=== PATIENT | female | born 1990 | race Caucasian/White ===

== ENCOUNTER 2020-04-26 15:20 | Emergency (ER) | payer OTHER ==
[2020-04-26 16:27] LABS: Absolute Lymphocytes (CBC) 2.7 K/uL (0.7-4.9); Basophils % 0.3 % (0-1.3); Hematocrit 39.6 % (36.0-45.0); MPV 8.7 fL (7.6-11.3); RBC Red Blood Cell Count 4.18 M/uL (3.86-4.86)
[2020-04-26 16:29] LABS: Protime INR 0.99
[2020-04-26 16:56] LABS: ALT/SGPT 45 U/L (12-78); AST/SGOT 28 U/L (15-37); Albumin 3.6 g/dL (3.4-5.0); Alkaline Phosphatase 76 U/L (45-117); BUN Blood Urea Nitrogen 8 mg/dL (7-18); Bicarbonate 28 mmol/L (21-32); Bilirubin Direct < 0.1 mg/dL (0-0.2); Bilirubin Total 0.2 mg/dL (0.2-1.0); Glucose Level 84 mg/dL (74-106); Magnesium 1.8 mg/dL (1.8-2.4); NT PRO-BNP 47 pg/mL (<125); Potassium 3.6 mmol/L (3.5-5.1); Protein, Total 7.1 g/dL (6.4-8.2); Sodium Level 139 mmol/L (136-145); Troponin (Emerg Dept Use Only) < 0.02 ng/mL (0.0-0.045)
[2020-04-26 17:19] LABS: Urine Blood NEGATIVE (NEG); Urine Glucose NEGATIVE (NEG); Urine Protein NEGATIVE (NEG); Urine Specific Gravity 1.015 (1.005-1.030)
--- NOTE | 2020-04-26 17:50 | RAD REPORT ---
EXAM DESCRIPTION: Shefali Single View04/26/2020 5:08 pm CLINICAL HISTORY: sob COMPARISON: none FINDINGS: The lungs appear clear of acute infiltrate. The heart is normal size IMPRESSION: No acute abnormalities displayed
--- NOTE | 2020-04-26 17:50 | RAD REPORT ---
EXAM DESCRIPTION: CT - Chest For Pe Angio - 04/26/2020 5:37 pm CLINICAL HISTORY: sob COMPARISON: None. TECHNIQUE: Dynamically enhanced axial 3 mm thick images of the chest were obtained during administra tion of <100> mL Isovue 370 IV contrast. Coronal and oblique reconstruction images were generated and reviewed. Exam utilizes a protocol for optimal evaluation of pulmonary arterial tree. Maximum intensity projections 3D imaging was utilized All CT scans are performed using dose optimization technique as appropriate and may include automated exposure control or mA/KV adjustment according to patient size. FINDINGS: A pulmonary embolus is not seen. A thoracic aortic aneurysm is not noted. A pleural effusion is not seen. A pericardial effusion is not seen. A lung consolidation is not present. Fatty liver IMPRESSION: Negative for a pulmonary embolism.
--- NOTE | 2020-04-26 18:18 | ER ---
Nurse's Notes [facility] Name: Lissette Darden Age: 29 yrs Sex: Female : 1990 Arrival Date: 04/26/2020 Time: 15:23 Bed 13 Private MD: Diagnosis: Edema, unspecified Presentation: 04/26 15:35 Chief complaint: Patient states: justice ankle swelling x 1 month, prescribed fluid pill sv for 5 days. c/o BLE swelling and numbness and tingling, bilateral hand swelling, shaking, migraines, cough, SOB for the past week. Coronavirus screen: Surgical mask placed on patient. Patient moved to private room, placed in contact and droplet isolation with eye protection until further assessment. Patient reports a cough. Patient reports shortness of breath or difficulty breathing. Patient denies measured and/or subjective temperature greater than 100.4F prior to today's visit. Patient denies travel on a cruise ship or to a country the [facility] currently lists as an affected area. Patient denies contact with known and/or suspected case of COVID-19. Ebola Screen: No symptoms or risks identified at this time. Risk Assessment: Do you want to hurt yourself or someone else? Patient reports no desire to harm self or others. Onset of symptoms was March 2020. 15:35 Method Of Arrival: Ambulatory sv 15:35 Acuity: JOSE 3 sv 15:37 Initial Sepsis Screen: Does the patient meet any 2 criteria? No. Patient's initial sv sepsis screen is negative. Does the patient have a suspected source of infection? No. Patient's initial sepsis screen is negative. Triage Assessment: 15:40 General: Appears in no apparent distress. comfortable, Behavior is calm, cooperative, sv appropriate for age. Neuro: Level of Consciousness is awake, alert, obeys commands, Oriented to person, place, time, situation, Gait is steady. Respiratory: Respiratory effort is even, unlabored. Historical: - Allergies: 15:37 No Known Allergies; sv - PMHx: 15:37 Depression; PTSD; Bipolar disorder; Anxiety; sv - Immunization history:: Adult Immunizations. - Social history:: Smoking status: Patient reports the use of cigarette tobacco products, smokes one-half pack cigarettes per day. Screenin:45 Abuse screen: Denies threats or abuse. Denies injuries from another. Nutritional bp screening: No deficits noted. Tuberculosis screening: No symptoms or risk factors identified. Fall Risk None identified. Assessment: 15:45 General: SEE TRIAGE NOTE. bp 17:08 Reassessment: DDIMER ELEVATED. CT PE AND U/S PENDING. bp 18:00 Reassessment: PT RETURNED FROM RADIOLOGY. D/C ON HOLD PENDING U/S REPORT. bp 18:57 Reassessment: PT D/C HOME AMBULATORY, DX WITH PERIPHERAL EDEMA. bp Vital Signs: 15:37 BP 119 / 66; Pulse 86; Resp 18; Temp 98.8; Pulse Ox 98% ; Weight 73.03 kg; Height 5 ft. sv 0 in. (152.40 cm); 17:00 BP 117 / 83; Pulse 79; Resp 16; Pulse Ox 97% ; bp 18:21 BP 130 / 101; Pulse 89; Resp 16; Pulse Ox 98% ; bp 15:37 Body Mass Index 31.44 (73.03 kg, 152.40 cm) sv ED Course: 15:23 Patient arrived in ED. ag5 15:34 Arm band placed on. sv 15:36 Triage completed. sv 15:42 Sergio Rodriguez PA is PHCP. jmm 15:42 Kp Wiley MD is Attending Physician. jmm 15:45 Patient has correct armband on for positive identification. Bed in low position. Call bp light in reach. Side rails up X2. 15:48 Darinel Richardson, RN is Primary Nurse. bp 16:10 Inserted saline lock: 22 gauge in right forearm, using aseptic technique. Blood bp collected. 16:52 XRAY Chest (1 view) In Process Unspecified. EDMS 17:38 CT Chest For PE Angio In Process Unspecified. EDMS 18:15 US Extremity Venous W Compression Justice In Process Unspecified. EDMS 18:57 No provider procedures requiring assistance completed. IV discontinued, intact, bp bleeding controlled, No redness/swelling at site. Pressure dressing applied. Administered Medications: 18:27 Drug: Ibuprofen 600 mg Route: PO; bp 18:27 Follow up: Response: Medication administered at discharge. bp Outcome: 18:18 Discharge ordered by . jmm 18:57 Discharged to home ambulatory. bp 18:57 Condition: stable 18:57 Discharge instructions given to patient, Instructed on discharge instructions, follow up and referral plans. Demonstrated understanding of instructions, follow-up care. 18:58 Patient left the ED. bp Signatures: Dispatcher [employer] Cinthya Lizama RN RN Sergio Mckenzie PA PA jmm Peltier, Brian, RN RN Amanda Mccormack ag5 Corrections: (The following items were deleted from the chart) 15:41 15:35 Chief complaint: Patient states: justice ankle swelling x 1 month, prescribed fluid sv pill. c/o BLE swelling and numbness and tingling, bilateral hand swelling, shaking, migraines, cough, SOB. sv
--- NOTE | 2020-04-26 18:19 | EDPHYS ---
Physician Documentation [facility] Name: Lissette Darden Age: 29 yrs Sex: Female : 1990 Arrival Date: 04/26/2020 Time: 15:23 Bed 13 Private MD: ED Physician Kp Wiley HPI: 04/26 15:58 This 29 yrs old Female presents to ER via Ambulatory with complaints of Feet jmm Swelling, Leg Swelling, Ankle Swelling. 15:58 The patient presents with swelling. The complaints affect the left ankle, right ankle. jmm Onset: The symptoms/episode began/occurred gradually, 1 month(s) ago. Associated signs and symptoms: Pertinent positives: SOB. Modifying factors: The symptoms are alleviated by nothing, the symptoms are aggravated by nothing. This is a 29 year old female with a history of PTSD, bipolar disorder, anxiety, that presents to the ED with complaints of bilaterally ankle swelling beginning approx 1 month ago. Was prescribed diuretic 2 weeks ago with minimal improvement. Patient now complains of shortness of breath and pain to her lower legs bilaterally. . Historical: - Allergies: 15:37 No Known Allergies; sv - PMHx: 15:37 Depression; PTSD; Bipolar disorder; Anxiety; sv - Immunization history:: Adult Immunizations. - Social history:: Smoking status: Patient reports the use of cigarette tobacco products, smokes one-half pack cigarettes per day. ROS: 15:58 Constitutional: Negative for fever, chills, and weight loss, Cardiovascular: Negative jmm for chest pain, palpitations, and edema. 15:58 Respiratory: Positive for shortness of breath. 15:58 MS/extremity: Positive for swelling, tingling. 15:58 All other systems are negative. Exam: 15:58 Constitutional: This is a well developed, well nourished patient who is awake, alert, jmm and in no acute distress. Head/Face: atraumatic. Eyes: EOMI, no conjunctival erythema appreciated ENT: Moist Mucus Membranes Neck: Trachea midline, Supple Chest/axilla: Normal chest wall appearance and motion. Cardiovascular: Regular rate and rhythm. No edema appreciated Respiratory: Normal respirations, no respiratory distress appreciated Abdomen/GI: Non distended, soft Back: Normal ROM Skin: General appearance color normal 15:58 Musculoskeletal/extremity: mild edema noted ot the extremities bilaterally. . 15:58 Skin: Appearance: Color: normal in color. 15:58 Neuro: Orientation: is normal, Mentation: is normal, Memory: is normal. 15:58 Psych: Behavior/mood is pleasant, cooperative. 18:18 ECG was reviewed by the Attending Physician. [facility] Vital Signs: 15:37 BP 119 / 66; Pulse 86; Resp 18; Temp 98.8; Pulse Ox 98% ; Weight 73.03 kg; Height 5 ft. sv 0 in. (152.40 cm); 17:00 BP 117 / 83; Pulse 79; Resp 16; Pulse Ox 97% ; bp 18:21 BP 130 / 101; Pulse 89; Resp 16; Pulse Ox 98% ; bp 15:37 Body Mass Index 31.44 (73.03 kg, 152.40 cm) sv MDM: 15:53 Patient medically screened. [facility] 18:17 Data reviewed: vital signs, nurses notes. Counseling: I had a detailed discussion with [facility] the patient and/or guardian regarding: the historical points, exam findings, and any diagnostic results supporting the discharge/admit diagnosis, lab results, radiology results, the need for outpatient follow up, to return to the emergency department if symptoms worsen or persist or if there are any questions or concerns that arise at home. ED course: Patient is alert and non toxic in appearance in the ED. Patient is advised to follow up with pcp and otherwise given strict return precautions. Patient understood and agrees with the plan of care. . 04/26 15:55 Order name: Basic Metabolic Panel; Complete Time: 17:02 [facility] 04/26 15:55 Order name: CBC with Diff; Complete Time: 16:39 [facility] 04/26 15:55 Order name: LFT's; Complete Time: 17:02 [facility] 04/26 15:55 Order name: Magnesium; Complete Time: 17:02 [facility] 04/26 15:55 Order name: NT PRO-BNP; Complete Time: 17:02 [facility] 04/26 15:55 Order name: PT-INR; Complete Time: 16:39 [facility] 04/26 15:55 Order name: Troponin (emerg Dept Use Only); Complete Time: 17:02 [facility] 04/26 15:55 Order name: XRAY Chest (1 view); Complete Time: 18:01 [facility] 04/26 15:55 Order name: D-Dimer; Complete Time: 16:39 [facility] 04/26 16:44 Order name: US Extremity Venous W Compression Arcenio; Complete Time: 18:32 [facility] 04/26 16:44 Order name: CT Chest For PE Angio; Complete Time: 18:01 [facility] 04/26 17:08 Order name: Urine Dipstick--Ancillary (enter results); Complete Time: 17:32 04/26 17:08 Order name: Urine --Ancillary (enter results); Complete Time: 17:32 04/26 15:55 Order name: EKG; Complete Time: 15:57 [facility] 04/26 15:55 Order name: Cardiac monitoring; Complete Time: 16:14 [facility] 04/26 15:55 Order name: EKG - Nurse/Tech; Complete Time: 16:16 [facility] 04/26 15:55 Order name: IV Saline Lock; Complete Time: 16:14 [facility] 04/26 15:55 Order name: Labs collected and sent; Complete Time: 16:14 [facility] 04/26 15:55 Order name: O2 Per Protocol; Complete Time: 15:57 [facility] 04/26 15:55 Order name: O2 Sat Monitoring; Complete Time: 15:57 [facility] 04/26 16:44 Order name: Urine Test (obtain specimen); Complete Time: 17:08 jmm EC:18 Rate is 78 beats/min. Rhythm is regular. QRS [place] is Normal. ME interval is normal. QRS jmm interval is normal. QT interval is normal. No Q waves. T waves are Flattened in lead aVF. No ST changes noted. Reviewed by me. Administered Medications: 18:27 Drug: Ibuprofen 600 mg Route: PO; bp 18:27 Follow up: Response: Medication administered at discharge. bp Disposition: 04/26/20 18:18 Discharged to Home. Impression: Edema, unspecified. - Condition is Stable. - Discharge Instructions: Peripheral Edema. - Medication Reconciliation Form, Thank You Letter, Antibiotic Education, Prescription Opioid Use form. - Follow up: Private Physician; When: 2 - 3 days; Reason: Recheck today's complaints, Continuance of care, Re-evaluation by your physician. Addendum: 04/29/2020 16:33 Co-signature as Attending Physician, Kp Wiley MD I agree with the assessment and k dr plan of care. Signatures: Dispatcher [employer] Cinthya Lizama, RN RN Kp Wiley MD MD kdr Mickail, Joel, PA PA jmm Peltier, Brian, RN RN bp Corrections: (The following items were deleted from the chart) 04/26 18:58 18:18 04/26/2020 18:18 Discharged to Home. Impression: Edema, unspecified. Condition is bp Stable. Forms are Medication Reconciliation Form, Thank You Letter, Antibiotic Education, Prescription Opioid Use. Follow up: Private Physician; When: 2 - 3 days; Reason: Recheck today's complaints, Continuance of care, Re-evaluation by your physician. cabrera
--- NOTE | 2020-04-26 18:30 | RAD REPORT ---
EXAM DESCRIPTION: USExtrem Venous W Compress Bil04/26/2020 6:15 pm CLINICAL HISTORY: Bilateral leg swelling COMPARISON: none FINDINGS: The common femoral, superficial femoral, popliteal and posterior tibial veins bilaterally are compressible and demonstrate augmentation. Doppler demonstrates good flow. IMPRESSION: No evidence of deep venous thrombosis involving either lower extremity.
[2020-04-26] MEDS ORDERED: IBUPROFEN 200 MG TAB PO ONE (18:33)
[2020-04-26 19:15] VITALS: TEMP 98.8
[2020-04-26 19:18] VITALS: BP 130/101; O2SAT 98
== END 2020-04-26 18:58 | disposition home or self-care (01) ==
LOC: ER 15:20
DX: R60.9 Edema, unspecified (principal); F17.210 Nicotine dependence, cigarettes, uncomplicated
CPT/HCPCS: 93005; 85025; 80048; 36415; 83735; 81025; 85610; 85379; 80076; 81003; 84484; 83880; 71275; 71045; 93970; 99284; Q9967

== ENCOUNTER 2020-05-09 09:04 | Emergency (ER) | payer OTHER ==
[2020-05-09 09:43] LABS: Urine Blood NEGATIVE (NEG); Urine Glucose NEGATIVE (NEG); Urine Protein NEGATIVE (NEG); Urine Specific Gravity 1.025 (1.005-1.030); Urine pH 5.5 (5.0-7.0)
[2020-05-09] MEDS ORDERED: dexAMETHasone 10 MG/ML VIAL ONE (09:47)
[2020-05-09] MEDS ORDERED: KETOROLAC 30 MG/ML INJ ONE (09:47)
--- NOTE | 2020-05-09 09:54 | ER ---
Nurse's Notes [facility] Name: Lissette Darden Age: 29 yrs Sex: Female : 1990 Arrival Date: 05/09/2020 Time: 09:07 Bed 17 Private MD: Diagnosis: Sciatica, right side Presentation: 05/09 09:23 Chief complaint: Patient states: R hip and R leg pain that began this morning when ss patient woke up. Denies injury. Pt reports that she "cracked" her back yesterday and is curious if this may have caused her symptoms. Coronavirus screen: Patient denies a cough. Patient denies shortness of breath or difficulty breathing. Patient denies measured and/or subjective temperature greater than 100.4F prior to today's visit. Patient denies travel on a cruise ship or to a country the [facility] currently lists as an affected area. Patient denies contact with known and/or suspected case of COVID-19. Ebola Screen: Patient denies exposure to infectious person. Patient denies travel to an Ebola-affected area in the 21 days before illness onset. Initial Sepsis Screen: Does the patient meet any 2 criteria? No. Patient's initial sepsis screen is negative. Does the patient have a suspected source of infection?. Risk Assessment: Do you want to hurt yourself or someone else? Patient reports no desire to harm self or others. Onset of symptoms was May 09, 2020. 09:23 Method Of Arrival: Wheelchair 09:23 Acuity: JOSE 4 ss Historical: - Allergies: 09:24 Cinnamon; ss - PMHx: 09:24 Bipolar disorder; Anxiety; Depression; PTSD; ss - Immunization history:: Adult Immunizations up to date. Screenin:40 Abuse screen: Denies threats or abuse. Denies injuries from another. jr10 09:40 Nutritional screening: No deficits noted. Tuberculosis screening: No symptoms or risk jr10 factors identified. Fall Risk No fall in past 12 months (0 pts). No secondary diagnosis (0 pts). No IV (0 pts). Ambulatory Aid- None/Bed Rest/Nurse Assist (0 pts). Gait- Weak (10 pts.). Mental Status- Oriented to own ability (0 pts). Assessment: 09:40 General: Appears in no apparent distress. Behavior is calm, cooperative, appropriate jr10 for age. Pain: Complains of pain in left lower back, left gluteus nancy, right foot and right leg Quality of pain is described as sharp, tingling, Pain began this morning Is continuous, Alleviated by repositioning, Aggravated by increased activity, weight bearing, Noted to be restless. Neuro: No deficits noted. Cardiovascular: No deficits noted. Respiratory: No deficits noted. GI: No deficits noted. Patient currently denies incontinence. : No deficits noted. Denies incontinence. Derm: No deficits noted. Musculoskeletal: Reports weakness in right foot and right leg. Injury Description: denies trauma or injury to affected extremity. Vital Signs: 09:24 BP 113 / 61; Pulse 87; Resp 16; Temp 98.5(TE); Pulse Ox 95% on R/A; Weight 73.94 kg; ss Height 5 ft. 0 in. (152.40 cm); Pain 7/10; 10:31 BP 100 / 62; Pulse 75; Resp 18; Temp 98.2(O); Pulse Ox 95% ; Pain 5/10; jr10 09:24 Body Mass Index 31.83 (73.94 kg, 152.40 cm) ED Course: 09:07 Patient arrived in ED. mr 09:16 Sergio Rodriguez PA is PHCP. [facility] 09:16 Kp Wiley MD is Attending Physician. jmm 09:24 Triage completed. ss 09:24 Arm band placed on right wrist. 09:32 Talya Rawls, BYRON is Primary Nurse. jr10 09:40 Patient has correct armband on for positive identification. Bed in low position. Call jr10 light in reach. Side rails up X2. 10:00 No provider procedures requiring assistance completed. Patient did not have IV access jr10 during this emergency room visit. Administered Medications: 09:50 Drug: Ketorolac 30 mg Route: IM; Site: right gluteus; jr10 10:31 Follow up: Response: No adverse reaction; Pain is decreased jr10 09:52 Drug: Decadron 10 mg Route: IM; Site: left gluteus; jr10 10:31 Follow up: Response: No adverse reaction; Pain is decreased jr10 Outcome: 09:54 Discharge ordered by . jmm 10:32 Discharged to home via wheelchair. jr10 10:32 Condition: improved 10:32 Discharge instructions given to patient, Instructed on discharge instructions, follow up and referral plans. Demonstrated understanding of instructions, medications, Prescriptions given X 1. 10:43 Patient left the ED. jr10 Signatures: Sergio Rodriguez PA PA jmm Rivera, Mary mr Bebeto Marycarmen, RN Talya Townsend RN RN jr10
--- NOTE | 2020-05-09 09:54 | EDPHYS ---
Physician Documentation [facility] Name: Lissette Darden Age: 29 yrs Sex: Female : 1990 Arrival Date: 05/09/2020 Time: 09:07 Bed 17 Private MD: ED Physician Kp Wiley HPI: 05/09 09:24 This 29 yrs old Female presents to ER via Unassigned with complaints of Leg jmm Pain, Foot Pain. 09:24 The patient presents with pain. Onset: The symptoms/episode began/occurred this jmm morning. Modifying factors: The symptoms are alleviated by nothing. the symptoms are aggravated by movement. Associated signs and symptoms: Pertinent negatives calf tenderness, fever. This is a 29 year old female with no chronic medical conditions that presents to the ED with complaints of right lower extremity pain which radiates into her lower back. Denies bowel or bladder incontinence. Symptoms began this morning. . Historical: - Allergies: 09:24 Cinnamon; ss - PMHx: 09:24 Bipolar disorder; Anxiety; Depression; PTSD; ss - Immunization history:: Adult Immunizations up to date. ROS: 09:26 Constitutional: Negative for fever, chills, and weight loss, Cardiovascular: Negative jmm for chest pain, palpitations, and edema, Respiratory: Negative for shortness of breath, cough, wheezing, and pleuritic chest pain. 09:26 Back: Positive for pain with movement. 09:26 MS/extremity: Positive for pain. 09:26 All other systems are negative. Exam: 09:26 Constitutional: This is a well developed, well nourished patient who is awake, alert, jmm and in no acute distress. Head/Face: atraumatic. Eyes: EOMI, no conjunctival erythema appreciated ENT: Moist Mucus Membranes Neck: Trachea midline, Supple Chest/axilla: Normal chest wall appearance and motion. Cardiovascular: Regular rate and rhythm. No edema appreciated Respiratory: Normal respirations, no respiratory distress appreciated Abdomen/GI: Non distended, soft Skin: General appearance color normal 09:26 Back: right lower back pain on palpation. 09:26 Neuro: extensor hallucis intact. 09:26 Psych: Behavior/mood is pleasant, cooperative. Vital Signs: 09:24 BP 113 / 61; Pulse 87; Resp 16; Temp 98.5(TE); Pulse Ox 95% on R/A; Weight 73.94 kg; ss Height 5 ft. 0 in. (152.40 cm); Pain 7/10; 10:31 BP 100 / 62; Pulse 75; Resp 18; Temp 98.2(O); Pulse Ox 95% ; Pain 5/10; jr10 09:24 Body Mass Index 31.83 (73.94 kg, 152.40 cm) ss MDM: 09:17 Patient medically screened. [facility] 09:52 Data reviewed: vital signs, nurses notes. Counseling: I had a detailed discussion with david the patient and/or guardian regarding: the historical points, exam findings, and any diagnostic results supporting the discharge/admit diagnosis, the need for outpatient follow up, to return to the emergency department if symptoms worsen or persist or if there are any questions or concerns that arise at home. ED course: Patient is alert and non toxic in appearance in the ED. Recent us negative for dvt. PE consistent with sciatica. I do not suspect abscess, cord compression, or cauda equina. Patient advised to follow up with pcp and otherwise given strict return precautions. Patient understood and agree with the plan of care. . 05/09 09:36 Order name: Urine Dipstick--Ancillary (enter results); Complete Time: 13:16 bd 05/09 09:36 Order name: Urine --Ancillary (enter results); Complete Time: 13:16 bd 05/09 09:25 Order name: Urine Dipstick-Ancillary (obtain specimen); Complete Time: 09:44 [facility] Administered Medications: 09:50 Drug: Ketorolac 30 mg Route: IM; Site: right gluteus; jr10 10:31 Follow up: Response: No adverse reaction; Pain is decreased jr10 09:52 Drug: Decadron 10 mg Route: IM; Site: left gluteus; jr10 10:31 Follow up: Response: No adverse reaction; Pain is decreased jr10 Disposition: 10:46 Co-signature as Attending Physician, Kp Wiley MD I agree with the assessment and kdr plan of care. Disposition: 05/09/20 09:54 Discharged to Home. Impression: Sciatica, right side. - Condition is Stable. - Discharge Instructions: Sciatica. - Prescriptions for orphenadrine citrate 100 mg Oral Tablet Sustained Release - take 1 tablet by ORAL route 2 times per day As needed; 20 tablet. - Medication Reconciliation Form, Thank You Letter, Antibiotic Education, Prescription Opioid Use form. - Follow up: Private Physician; When: 2 - 3 days; Reason: Recheck today's complaints, Continuance of care, Re-evaluation by your physician. Signatures: Dispatcher [employer] EDMS Kp Wiley MD MD kdr Mickail, Joel, PA PA jmm Smirch, Shelby, RN RN Talya Rawls RN RN jr10 Corrections: (The following items were deleted from the chart) 10:43 09:54 05/09/2020 09:54 Discharged to Home. Impression: Sciatica, right side. Condition jr10 is Stable. Forms are Medication Reconciliation Form, Thank You Letter, Antibiotic Education, Prescription Opioid Use. Follow up: Private Physician; When: 2 - 3 days; Reason: Recheck today's complaints, Continuance of care, Re-evaluation by your physician. cabrera
[2020-05-09 10:48] VITALS: O2SAT 95
[2020-05-09 10:50] VITALS: BP 100/62; TEMP 98.2
== END 2020-05-09 10:43 | disposition home or self-care (01) ==
LOC: ER 09:04
DX: M54.31 Sciatica, right side (principal); Z91.018 Allergy to other foods
CPT/HCPCS: 81025; 81003; 96372; 99283; J1100